=== PATIENT | female | born 1955 | race Caucasian/White ===

== ENCOUNTER → 2016-12-08 | Outpatient (CLI) | payer MEDICARE, OTHER ==
--- NOTE | 2016-12-11 09:39 | RADIOLOGY REPORT PS360 ---
US PELVIS-TRANSVAGINAL ONLY HISTORY: DYSPAREUNIA 6 weeks. No bleeding postmenopausal Patient Age: 61 years: Female Ordering Physician: Mauricio Ty MD TECHNIQUE: Transvaginal pelvic ultrasound COMPARISON : No previous for comparison FINDINGS Uterus. Overall normal size 7 cm length as 3.1 cm AP x 5.2 cm transverse. Fairly thin endometrial stripe measuring 2.3 mm AP Suspect more likely likely uterine fibroids account for the areas at the lower uterus, with most prominent area along anterior cervix as detailed below::.. #1. Favor Probable solid fibroid throughout anterior aspect the cervix. Elongated hypoechoic masslike area at anterior cervix which extends for 2.2 cm length X 2 cm transverse X 10mm AP. More likely likely fibroid. Less likely debris-filled & enlarged semisolid nabothian cyst here t #2. Most likely Fibroid 1.2 cm fibroid at the posterior aspect lower uterine segment where junctions with upper cervix . The hypoechoic shadowing area at the anterior myometrium towards lower uterine segment is most compatible with scar in this area.. Right ovary 1.4 x 2.3 X 1.75 cm. Left ovary 2.8 x 1.8 x 2 cm. . Slightly generous postmenopausal Left ovary is larger than right, but but with no focal mass evident. No cyst Good color Doppler flow to both ovaries No fluid in cul-de-sac IMPRESSION: 1. Probable fibroids at lower uterus.. Less likely semisolid debris-filled nabothian cysts: A. ..: Elongated 2.1 cm length x 1 cm most likely fibroid, less likely large debris-filled nabothian cyst, seen throughout anterior cervix. B...: 1.2 cm most likely fibroid posterior myometrium lower uterine segment, at junction with upper cervix C. scar at the lower uterine segment anterior myometrium 2. Left ovary is larger than right with upper normal size left ovary. . No ovarian mass nor cyst. 3. No fluid in cul-de-sac
== END ==
LOC: RAD 13:15
DX: N94.10 Unspecified dyspareunia (principal)